=== PATIENT | male | born 1990 | race Caucasian/White ===

== ENCOUNTER 2022-11-02 08:33 | Emergency (ER) | payer BC, OTHER ==
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
[2022-11-02 09:01] VITALS: O2SAT 95
--- NOTE | 2022-11-02 09:39 | XRAY ---
Indication: Pain. Multiple contiguous axial images obtained through the left shoulder without contrast. Sagittal and coronal reformatted images obtained. Comparison: None No acute fracture, dislocation, or suspicious bony lesions. Visualized soft tissues including visualized left lung unremarkable for noncontrast exam. Impression: Normal CT left shoulder without contrast exam.
--- NOTE | 2022-11-02 09:51 | XRAY ---
Indication: Left chest pain. Multiple contiguous axial images obtained through the chest without contrast. Comparison: None Lungs inflated with small posterior right lower lobe bleb. No suspicious pulmonary mass/nodule, infiltrate, or effusion. Heart not enlarged. Aorta is normal in course and caliber. No pathologic mediastinal lymphadenopathy. Bony thorax intact. Limited upper abdomen demonstrates a few right renal punctate calculi. Impression: 1. Incidental right lower lobe bleb and right renal punctate calculi. 2. Remaining CT chest without contrast exam is normal.
[2022-11-02 10:08] VITALS: BP 181/88; PULSE 101
== END 2022-11-02 10:15 | disposition home or self-care (01) ==
LOC: ED 08:33
DX: S00.81XA Abrasion of other part of head, initial encounter (principal); S21.132A Puncture wound without foreign body of left front wall of thorax without penetration into thoracic cavity, initial encounter; X99.9XXA Assault by unspecified sharp object, initial encounter; Y92.149 Unspecified place in prison as the place of occurrence of the external cause; Y99.0 Civilian activity done for income or pay; Z79.891 Long term (current) use of opiate analgesic
CPT/HCPCS: 71250; 73200; 99282

== ENCOUNTER 2024-09-09 10:01 | Emergency (ER) | payer OTHER ==
[2024-09-09 10:12] VITALS: BP 159/108; PULSE 95; TEMP 98.5; O2SAT 97
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
[2024-09-09] MEDS ORDERED: NORCO 5/325 MG ONE (10:34)
[2024-09-09] MEDS: NORCO 5/325 MG PO ONE (10:35)
--- NOTE | 2024-09-09 19:49 | XRAY ---
Indication: Pain following fall. Comparison: None 3 view left knee demonstrates prior ACL reconstructive surgery, mild medial joint space narrowing/spurring, and incidental small posterior fabella. No other bony, articular, or soft tissue abnormalities.
== END 2024-09-09 10:48 | disposition home or self-care (01) ==
LOC: ED 10:01
DX: S83.92XA Sprain of unspecified site of left knee, initial encounter (principal); M25.562 Pain in left knee
CPT/HCPCS: 73562; 99282; 99283; A9270-GY

== ENCOUNTER 2025-07-31 16:35 | Emergency (ER) | payer OTHER ==
[2025-07-31 16:46] VITALS: TEMP 97.7
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
[2025-07-31] MEDS ORDERED: Ketamine HCl 50 MG/ML ONE (17:50)
[2025-07-31] MEDS ORDERED: D5w 100ML Mini Bag 100 ML 100 ML IV ONE (18:14)
[2025-07-31] MEDS ORDERED: TYLENOL 325 MG ONE (19:12)
[2025-07-31] MEDS ORDERED: MORPHINE SULFATE 2 MG INJ ONE (19:12)
[2025-07-31] MEDS: MORPHINE SULFATE 2 MG INJ IM ONE (19:14)
[2025-07-31] MEDS: TYLENOL 325 MG PO ONE (19:14)
[2025-07-31 19:22] VITALS: BP 158/93
[2025-07-31 19:23] VITALS: PULSE 99; RESP 18; O2SAT 98
--- NOTE | 2025-08-01 08:52 | XRAY ---
Indication: Trauma. Comparison: None AP pelvis and 2 view left hip obtained. No bony, articular, or soft tissue abnormalities.
--- NOTE | 2025-08-01 08:52 | XRAY ---
Indication: Trauma. Comparison: September 09, 2024 2 view left knee again demonstrates prior ACL reconstructive surgery, mild medial degenerative joint space narrowing/spurring, and small posterior fabella. No new/acute bony, articular, or soft tissue abnormalities.
== END 2025-07-31 19:23 | disposition home or self-care (01) ==
LOC: ED 16:35
DX: S73.102A Unspecified sprain of left hip, initial encounter (principal); S83.92XA Sprain of unspecified site of left knee, initial encounter; W03.XXXA Other fall on same level due to collision with another person, initial encounter; Y92.148 Other place in prison as the place of occurrence of the external cause; Y99.0 Civilian activity done for income or pay; I10 Essential (primary) hypertension; E11.9 Type 2 diabetes mellitus without complications; Z79.899 Other long term (current) drug therapy